=== PATIENT | male | born 1970 | race Caucasian/White ===

== ENCOUNTER 2023-10-16 09:16 | Emergency (ER) | payer BC ==
[2023-10-16] MEDS ORDERED: predniSONE 10 MG Tab PO ONE (09:44)
[2023-10-16] MEDS ORDERED: Famotidine 20 MG Tab PO ONE (09:45)
== END 2023-10-16 10:05 | disposition home or self-care (01) ==
LOC: EDUNIT# → JD.ED 09:16
DX: T78.40XA Allergy, unspecified, initial encounter (principal)
CPT/HCPCS: 99282; A9270; J7512